=== PATIENT | female | born 1985 | race Caucasian/White ===

== ENCOUNTER 2018-02-22 20:19 | Inpatient (IN) | payer OTHER ==
[2018-02-22] MEDS ORDERED: OXYTOCIN 30 UNITS/LR 500 ML IV (22:00)
[2018-02-22] MEDS ORDERED: MISOPROSTOL 200 MCG TAB PR (22:00)
[2018-02-22] MEDS ORDERED: METHYLERGONOVINE 0.2 MG INJ IM (22:00)
[2018-02-22] MEDS ORDERED: CARBOPROST 250 MCG INJ IM (22:00)
[2018-02-22] MEDS: AMPICILLIN 2 GM/NS (PMX) 100 ML IVPB (22:58)
[2018-02-22] MEDS: LACTATED RINGER'S 1,000 ML IV ×2 (22:58→23:47)
[2018-02-22 23:02] LABS: ADD MAN DIFF? NO
[2018-02-22 23:09] LABS: BASOPHILS % 0.4 % (0.0-2.0); EOSINOPHILS # 0.3 10^3/ul (0.0-0.5); EOSINOPHILS % 2.6 % (0.0-7.0); HEMATOCRIT 39.7 % (37.0-47.0); HEMOGLOBIN 13.2 g/dl (12.0-16.0); LYMPHOCYTES # 2.7 10^3/ul (0.8-2.9); LYMPHOCYTES % 24.5 % (15.0-51.0); MEAN CORPUSCULAR HEMOGLOBIN 26.7 pg (29.0-33.0); MEAN CORPUSCULAR HGB CONC 33.2 g/dl (32.0-37.0); MEAN CORPUSCULAR VOLUME 80.4 fl (82.0-101.0); MEAN PLATELET VOLUME 10.4 fl (7.4-10.4); MONOCYTE # 0.8 10^3/ul (0.3-0.9); MONOCYTES % 7.1 % (0.0-11.0); NEUTROPHILS % 64.9 % (39.0-77.0); PLATELET COUNT 312 10^3/UL (140-415); RED BLOOD COUNT 4.94 10^6/ul (4.20-5.40); RED CELL DISTRIBUTION WIDTH 13.7 % (11.5-14.5)
[2018-02-22 23:09] LABS: WHITE BLOOD COUNT 10.8 10^3/ul (4.8-10.8)
[2018-02-22 23:25] LABS: INR 0.92; PROTIME 12.5 Sec (11.9-14.9)
[2018-02-22 23:26] LABS: PARTIAL THROMBOPLASTIN TIME 27.2 Sec (23.0-35.0)
[2018-02-23 00:02] LABS: ADD UMIC YES; UR ASCORBIC ACID NEGATIVE (NEGATIVE); UR BACTERIA FEW /HPF (NONE SEEN); UR BILIRUBIN (Dip) NEGATIVE (NEGATIVE); UR BLOOD (Dip) NEGATIVE (NEGATIVE); UR CLARITY SLIGHTLY CLOUDY (CLEAR); UR COLOR YELLOW (YELLOW); UR GLUCOSE (Dip) NEGATIVE (NEGATIVE); UR KETONES (Dip) NEGATIVE (NEGATIVE); UR LEUKOCYTE ESTERASE (Dip) TRACE Leu/ul (NEGATIVE); UR NITRITE (Dip) NEGATIVE (NEGATIVE); UR RBC 5 /HPF (0-5); UR SPECIFIC GRAVITY (Dip) 1.014 (1.003-1.030); UR TOTAL PROTEIN (Dip) NEGATIVE (NEGATIVE); UR UROBILINOGEN (Dip) NEGATIVE (NEGATIVE); UR WBC 1 /HPF (0-5)
[2018-02-23] MEDS ORDERED: morphine SULFATE/PF (10 MG/10 ML) INJ (00:19)
[2018-02-23] MEDS ORDERED: OXYTOCIN 10 UNIT INJ (00:20)
[2018-02-23] MEDS ORDERED: BUPIVACAINE 0.75%/DEXT (SPINAL) 2 ML INJ (00:26)
[2018-02-23] MEDS ORDERED: EPINEPHrine 1 MG INJ (00:27)
[2018-02-23] MEDS ORDERED: DIPHENHYDRAMINE 50 MG INJ IV ×2 (00:30)
[2018-02-23] MEDS ORDERED: ZOLPIDEM 5 MG TAB PO (00:30)
[2018-02-23] MEDS ORDERED: FENTAnyl 50 MCG/ML VIAL IV ×2 (00:30)
[2018-02-23] MEDS ORDERED: HYDROmorphONE 0.5 MG/0.5 ML SYG IV ×2 (00:30)
[2018-02-23] MEDS ORDERED: HYDROmorphONE 1 MG/5 ML IV SYRINGE IV ×3 (00:30)
[2018-02-23] MEDS ORDERED: NALOXONE (0.4 MG/ML) INJ IV (00:30)
[2018-02-23] MEDS ORDERED: ONDANSETRON 4 MG INJ IV ×2 (00:30)
[2018-02-23] MEDS: ONDANSETRON 4 MG INJ IV (00:35)
[2018-02-23] MEDS: LACTATED RINGER'S 1,000 ML IV ×2 (00:35→15:51)
[2018-02-23] MEDS: FAMOTIDINE 20 MG INJ IV (00:35)
[2018-02-23] MEDS: METOCLOPRAMIDE 10 MG INJ IV (00:35)
[2018-02-23] MEDS: CITRIC ACID/NA CITRATE 30 ML CUP PO (00:36)
[2018-02-23] MEDS: CEFAZOLIN 2 GM/50 ML (PMX) 50 ML IVPB ×4 (01:03→16:39)
[2018-02-23] MEDS ORDERED: CARBOPROST 250 MCG INJ IM (02:00)
[2018-02-23] MEDS ORDERED: OXYTOCIN 30 UNITS/LR 500 ML IV (02:00)
[2018-02-23] MEDS ORDERED: METHYLERGONOVINE 0.2 MG INJ IM (02:00)
[2018-02-23] MEDS ORDERED: NACL 0.9% 3 ML SYG IV (02:00)
[2018-02-23] MEDS ORDERED: MISOPROSTOL 200 MCG TAB PR (02:00)
[2018-02-23] MEDS: OXYTOCIN 30 UNITS/LR 500 ML IV ×2 (02:34→06:04)
[2018-02-23] MEDS: KETOROLAC 30 MG INJ IV ×3 (04:15→15:52)
[2018-02-23] MEDS ORDERED: PROPOFOL 200 MG INJ (07:00)
[2018-02-23 18:10] LABS: RAPID PLASMA REAGIN NONREACTIVE (NR)
[2018-02-24] MEDS: KETOROLAC 30 MG INJ IV (00:39)
[2018-02-24] MEDS: CEFAZOLIN 2 GM/50 ML (PMX) 50 ML IVPB (00:40)
[2018-02-24] MEDS: IBUPROFEN 600 MG TAB PO ×4 (05:58→23:34)
[2018-02-24] MEDS: OXYCODONE/ACETAMINOPHEN (5/325) TAB PO ×3 (06:13→20:38)
[2018-02-24 07:51] LABS: ADD MAN DIFF? NO
[2018-02-24 07:55] LABS: BASOPHILS % 0.3 % (0.0-2.0); EOSINOPHILS # 0.2 10^3/ul (0.0-0.5); EOSINOPHILS % 1.4 % (0.0-7.0); HEMATOCRIT 33.3 % (37.0-47.0); HEMOGLOBIN 10.9 g/dl (12.0-16.0); LYMPHOCYTES # 1.8 10^3/ul (0.8-2.9); LYMPHOCYTES % 16.4 % (15.0-51.0); MEAN CORPUSCULAR HEMOGLOBIN 26.6 pg (29.0-33.0); MEAN CORPUSCULAR HGB CONC 32.7 g/dl (32.0-37.0); MEAN CORPUSCULAR VOLUME 81.2 fl (82.0-101.0); MEAN PLATELET VOLUME 10.3 fl (7.4-10.4); MONOCYTE # 0.8 10^3/ul (0.3-0.9); MONOCYTES % 6.9 % (0.0-11.0); NEUTROPHIL # 8.2 10^3/ul (1.6-7.5); NEUTROPHILS % 74.5 % (39.0-77.0); PLATELET COUNT 262 10^3/UL (140-415); RED CELL DISTRIBUTION WIDTH 13.7 % (11.5-14.5)
[2018-02-24 07:55] LABS: WHITE BLOOD COUNT 11.1 10^3/ul (4.8-10.8)
[2018-02-24] MEDS: LANOLIN HPA 1 PKT TOP (20:38)
[2018-02-24] MEDS: FERROUS SULFATE (EC) 325 MG TAB PO (20:38)
[2018-02-25] MEDS: OXYCODONE/ACETAMINOPHEN (5/325) TAB PO ×5 (00:32→22:00)
[2018-02-25] MEDS: IBUPROFEN 600 MG TAB PO ×4 (06:01→23:41)
[2018-02-25] MEDS: FERROUS SULFATE (EC) 325 MG TAB PO ×2 (08:34→21:59)
[2018-02-25] MEDS: BISACODYL (EC) 5 MG TAB PO (22:00)
[2018-02-26] MEDS: OXYCODONE/ACETAMINOPHEN (5/325) TAB PO (03:03)
[2018-02-26] MEDS: IBUPROFEN 600 MG TAB PO ×2 (05:38→11:41)
[2018-02-26] MEDS: FERROUS SULFATE (EC) 325 MG TAB PO (09:35)
== END 2018-02-26 14:30 | disposition home or self-care (01) | DRG 785 ==
LOC: OBT 20:19 → L-D 02-23 01:08 → PP1 02-23 04:41 → OBT 21:50 → L-D 21:50
PROC: 10D00Z1 Extraction of Products of Conception, Low, Open Approach (ICD-10-PCS; principal; 2018-02-23 00:15)
PROC: 0UB70ZZ Excision of Bilateral Fallopian Tubes, Open Approach (ICD-10-PCS; 2018-02-23 00:15)
DX: O34.211 Maternal care for low transverse scar from previous cesarean delivery (principal); Z3A.37 37 weeks gestation of pregnancy; Z37.0 Single live birth; Z30.2 Encounter for sterilization
CPT/HCPCS: 76818; 81001; 85025; 85610; 85730; 86592; 86850; 86900; 86901; 87086; 88302; 88307; 99464